=== PATIENT | female | born 2000 | race Caucasian/White ===

== ENCOUNTER 2022-09-14 23:25 | Emergency (ER) | payer MEDICAID, OTHER ==
[~2022-09-14] VITALS: Ht 147.3 cm; Wt 72.6 kg
[~2022-09-14 23:25] MED LIST: AMOX250C31 PO
[2022-09-15 00:17] VITALS: BP 120/84; PULSE 68; RESP 16; TEMP 97.3; O2SAT 99
--- NOTE | 2022-09-15 00:22 | NUR ---
TO LOBBY FOLLOWING TRIAGE AFTER OBTAINING UA
[2022-09-15 00:48] LABS: APPEARANCE,URINE CLOUDY (CLEAR); BILIRUBIN,URINE NEGATIVE (NEGATIVE); BLOOD, URINE NEGATIVE (NEGATIVE); COLOR,URINE YELLOW (YELLOW); LEUKOCYTE ESTERASE ,URINE NEGATIVE (NEGATIVE); NITRITE, URINE NEGATIVE (NEGATIVE); PH,URINE 8.5 (5.0-9.0); UGLUCOSE NEGATIVE (NEGATIVE)
--- NOTE | 2022-09-15 01:00 | NUR ---
PT TO ULTRASOUND AMBULATORY
--- NOTE | 2022-09-15 02:35 | NUR ---
PT. TO BED 07
--- NOTE | 2022-09-15 02:40 | NUR ---
pt resting on bed. A/Ox4, not in distress. chest rise and fall symmetrical. on monitor. call light within reach, pt instructed on how to use call light, pt returned demonstration. all needs met at this time. bed locked in lowest position , side rails x2 for saftey.
--- NOTE | 2022-09-15 03:15 | NUR ---
ermd at bedside
--- NOTE | 2022-09-15 03:48 | NUR ---
ermd at bedside
[2022-09-15] MEDS ORDERED: VALA500T52 PO ×2 (03:52→04:03)
[2022-09-15] MEDS ORDERED: IBUP-2213 PO ×2 (03:52→04:03)
[2022-09-15 04:04] VITALS: BP 124/84; PULSE 68; RESP 16; TEMP 97.4; O2SAT 99
--- NOTE | 2022-09-15 04:04 | NUR ---
Patient discharged with v/s stable. Written and verbal after care instructions given and explained. Patient alert, oriented and verbalized understanding of instructions. Ambulatory with steady gait. All questions addressed prior to discharge. ID band removed. Patient advised to follow up with PMD. Rx given to pt. Patient educated on indication of medication including possible reaction and side effects. Opportunity to ask questions provided and answered.
== END 2022-09-15 04:04 | disposition home or self-care (01) ==
LOC: MED 23:25
DX: R10.2 Pelvic and perineal pain (principal); Z79.899 Other long term (current) drug therapy
CPT/HCPCS: 76856; 81003; 81025; 99284